=== PATIENT | female | born 1985 | race Caucasian/White ===

== ENCOUNTER → 2019-02-19 10:38 | Outpatient (CLI) | payer OTHER, SELFPAY ==
--- NOTE | 2019-02-19 | DI.RAD.S_ITS ---
PROCEDURE: XR HIP W PEL IF DONE LT MIN 4V INDICATIONS: RIGHT HIP/LEFT HIP PAIN TECHNIQUE: AP pelvis with lateral view(s) of the bilateral hip(s). COMPARISON: None. FINDINGS: Bones: No fractures or dislocations. Pelvic ring appears intact. No suspicious bony lesions. Soft tissues: The visualized bowel gas pattern is normal. No suspicious soft tissue calcifications. IMPRESSION: Normal pelvis and bilateral hips. Dictated by: Preethi Kemp M.D. on 02/19/2019 at 12:55 Approved by: Preethi Kemp M.D. on 02/19/2019 at 12:56
--- NOTE | 2019-02-19 | DI.US.S_ITS ---
PROCEDURE: US PELVIC COMPLETE INDICATIONS: PELVIC AND PERINEAL PAIN TECHNIQUE: Real-time scanning was performed of the pelvic organs, with image documentation. Additional endovaginal scanning was necessary due to incomplete visualization of the adnexal and endometrial structures by transabdominal scanning. COMPARISON: None. FINDINGS: Transabdominal scanning: Limited scanning through the kidneys shows no hydronephrosis. No pathologic free abdominal or pelvic fluid. Endovaginal scanning: Uterus: Uterus is normal in size at 7.9 x 4.2 x 4.4 cm. The endometrium measures 3.5 mm in combined thickness. Ovaries: Ovaries are normal measuring 4.1 x 1.8 x 2.0 cm on the right and 4.5 x 2.0 x 2.1 cm in length. Physiologic free fluid. IMPRESSION: No source for pelvic pain identified sonographically. Dictated by: Guanaco HUA Interpreted: Sony Nazario MD on 02/19/2019 at 13:11 Approved by: Sony Nazario M.D. on 02/19/2019 at 16:09
== END ==
PROVIDERS: Family Provider Registered Nurse Women's Health Care, Ambulatory; PCP Registered Nurse Women's Health Care, Ambulatory; Visit Provider Nurse Practitioner
DX: R10.2 Pelvic and perineal pain (principal); M25.551 Pain in right hip; M25.552 Pain in left hip
CPT/HCPCS: 73522; 76830; 76856

== ENCOUNTER → 2019-09-13 17:45 | Outpatient (CLI) | payer OTHER, SELFPAY ==
--- NOTE | 2019-09-13 17:47 | DI.RAD.S_ITS ---
PROCEDURE: XR CHEST 2V INDICATIONS: L lateral wall pain following URI, r/o fx TECHNIQUE: 2 views of the chest were acquired. COMPARISON: None. FINDINGS: Surgical changes and devices: None. Lungs and pleura: Lungs are abnormal with a partially cavitary lesion at the left upper outer hemithorax, not abutting the pleural surface by plain film imaging, measuring up to 2.7 cm in maximal dimension. No pleural effusions or pneumothorax. Mediastinum: Mediastinal contours are normal. Heart size is normal. Bones and chest wall: No suspicious bony abnormalities. Soft tissues appear unremarkable. IMPRESSION: Cavitary lung lesion, which in a young patient is unlikely to represent cavitary malignancy but cavitary pneumonia is the most likely cause. Dictated by: Chris Tamayo M.D. on 09/13/2019 at 18:20 Approved by: Chris Tamayo M.D. on 09/13/2019 at 18:21
== END ==
PROVIDERS: Visit Provider Physician Assistant
DX: R07.89 Other chest pain (principal); R91.1 Solitary pulmonary nodule
CPT/HCPCS: 71046

== ENCOUNTER → 2019-09-27 16:52 | Outpatient (CLI) | payer OTHER, SELFPAY ==
--- NOTE | 2019-09-27 16:58 | DI.RAD.S_ITS ---
PROCEDURE: XR CHEST 2V INDICATIONS: pneumonia TECHNIQUE: 2 views of the chest were acquired. COMPARISON: [facility], CR, XR CHEST 2V, 09/13/2019, 17:47. FINDINGS: Surgical changes and devices: None. Lungs and pleura: Lungs are improving with a smaller centrally cavitary lesion involving the left upper lobe laterally, approximately 1/2 the size of the prior appearance from 09/13/19. No pleural effusions or pneumothorax. Mediastinum: Mediastinal contours are normal. Heart size is normal. Bones and chest wall: No suspicious bony abnormalities. Soft tissues appear unremarkable. IMPRESSION: Slowly improving and resolving centrally cavitary lung lesion which given the interval improvement over time and history of pneumonia presumably represents a centrally cavitary focus of infection. No new lesion is found. Dictated by: Chris Tamayo M.D. on 09/27/2019 at 17:30 Approved by: Chris Tamayo M.D. on 09/27/2019 at 17:31
== END ==
PROVIDERS: Visit Provider Physician Assistant
DX: J18.9 Pneumonia, unspecified organism (principal); J98.4 Other disorders of lung
CPT/HCPCS: 71046

== ENCOUNTER → 2019-10-24 10:04 | Outpatient (CLI) | payer OTHER, SELFPAY ==
--- NOTE | 2019-10-24 10:06 | DI.RAD.S_ITS ---
PROCEDURE: XR CHEST 2V INDICATIONS: cavitary pneumonia, s/p abx, inspect if improving TECHNIQUE: 2 views of the chest were acquired. COMPARISON: [facility], CR, XR CHEST 2V, 09/27/2019, 16:59. [facility], CR, XR CHEST 2V, 09/13/2019, 17:47. FINDINGS: Surgical changes and devices: None. Lungs and pleura: Name focal area of consolidation within the left upper lobe is significantly less apparent on the current study, compared to the previous exam, suggesting a healing area of cavitation/infection. No new areas of consolidation are identified. There is no effusion or pneumothorax. Mediastinum: Mediastinal contours are normal. Heart size is normal. Bones and chest wall: No suspicious bony abnormalities. Subacute/healing left 9th and 10th distal rib fractures are identified. Soft tissues appear unremarkable. IMPRESSION: 1. Near complete interval resolution of the left upper lobe focus of consolidation with developing mild scarring. No new areas of consolidation. 2. Subacute/healing left 9th and 10th distal rib fractures. No pneumothorax. Dictated by: Travis Castellanos M.D. on 10/24/2019 at 9:20 Approved by: Travis Castellanos M.D. on 10/24/2019 at 9:24
== END ==
PROVIDERS: Visit Provider Physician Assistant
DX: J18.9 Pneumonia, unspecified organism (principal); J98.4 Other disorders of lung; S22.42XD Multiple fractures of ribs, left side, subsequent encounter for fracture with routine healing
CPT/HCPCS: 71046

== ENCOUNTER → 2020-02-15 14:47 | Outpatient (CLI) | payer OTHER, SELFPAY ==
--- NOTE | 2020-02-15 | DI.RAD.S_ITS ---
PROCEDURE: XR CHEST 2V INDICATIONS: CHEST PAIN, UNSPEC TECHNIQUE: 2 views of the chest were acquired. COMPARISON: [facility], CR, XR CHEST 2V, 09/13/2019, 17:47. [facility], CR, XR CHEST 2V, 09/27/2019, 16:59. [facility], CR, XR CHEST 2V, 10/24/2019, 10:01. FINDINGS: Surgical changes and devices: None. Lungs and pleura: Nodular density in the left upper lung zone is replaced by linear density, likely secondary scarring. No pleural effusions or pneumothorax. Mediastinum: Mediastinal contours are normal. Heart size is normal. Bones and chest wall: Non-acute left eighth and ninth rib fractures are again noted. No suspicious bony abnormalities. Soft tissues appear unremarkable. IMPRESSION: 1. No acute cardiopulmonary disease. 2. Left upper lung scarring. 3. Non-acute left eighth and ninth rib fractures. Dictated by: Davion Lopez M.D. on 02/15/2020 at 15:23 Approved by: Davion Lopez M.D. on 02/15/2020 at 15:27
== END ==
PROVIDERS: PCP Nurse Practitioner Family; Referring Provider Nurse Practitioner Family; Visit Provider Nurse Practitioner Family
DX: R07.9 Chest pain, unspecified (principal); J98.4 Other disorders of lung; S22.42XS Multiple fractures of ribs, left side, sequela
CPT/HCPCS: 71046

== ENCOUNTER → 2022-10-18 14:47 | Outpatient (CLI) | payer OTHER, SELFPAY ==
[2022-10-18 17:10] LABS: Cholesterol 188 mg/dL (140-199); HDL Cholesterol 102 mg/dL (40-60); LDL Cholesterol Calculated 74 mg/dL (<100); Triglycerides 61 mg/dL (35-150)
== END ==
PROVIDERS: PCP Nurse Practitioner Family; Referring Provider Internal Medicine Cardiovascular Disease; Visit Provider Internal Medicine Cardiovascular Disease
DX: Z00.00 Encounter for general adult medical examination without abnormal findings (principal)
CPT/HCPCS: 36415; 80061

== ENCOUNTER → 2022-12-12 16:12 | Outpatient (CLI) | payer OTHER, SELFPAY ==
--- NOTE | 2022-12-12 16:13 | DI.MRI.S_ITS ---
PROCEDURE: MR HEAD/BRAIN WO/W CON INDICATIONS: Paresthesia of skin TECHNIQUE: Noncontrast axial T1 spin echo, axial T2 fast spin echo, sagittal and axial FLAIR, coronal T2 fast spin echo, axial gradient echo, axial diffusion and ADC through the brain. After the administration of contrast, axial and coronal and sagittal 3D VIBE or T1 spin echo with fat saturation through the brain. COMPARISON: None. FINDINGS: Image quality: Excellent. CSF Spaces: Basal cisterns are patent. No extra-axial fluid collections. Ventricles are normal in size and shape. Brain: A few scattered T2 hyperintense white matter lesions can be seen. For example, on series 7, image 15. These foci do not enhance. No midline shift. No intracranial bleeds or masses. No abnormal intracranial enhancement. The brainstem abnormality is seen. Diffusion-weighted images demonstrate no acute ischemic insults. Normal intravascular flow voids are present. Skull and face: Calvarial marrow is normal in signal. Orbits appear normal. Sinuses: Mild mucosal thickening is seen within the posterior maxillary sinuses. The paranasal sinuses are otherwise unremarkable. Mild bilateral mastoid air cell fluid can be seen. IMPRESSION: A few scattered T2 hyperintense white matter lesions are seen, without enhancement. These are nonspecific, although differential diagnosis includes an early dilating process, including multiple sclerosis. Please also consider sequelae of migraine headaches. No masses or abnormal enhancement can be seen. No findings of acute or subacute infarction can be seen. Dictated by: Matthew Grant M.D. on 12/12/2022 at 16:50 Approved by: Matthew Grant M.D. on 12/12/2022 at 16:52
== END ==
PROVIDERS: PCP Nurse Practitioner Family; Referring Provider Psychiatry & Neurology Neurology; Visit Provider Psychiatry & Neurology Neurology
DX: R90.82 White matter disease, unspecified (principal); R20.2 Paresthesia of skin
CPT/HCPCS: 70553